=== PATIENT | female | born 1970 | race Caucasian/White ===

== ENCOUNTER 2024-04-12 21:59 | Emergency (ER) | payer OTHER, SELFPAY ==
[2024-04-12 22:01] VITALS: BP 166/87; PULSE 61; RESP 16; TEMP 36.5
--- NOTE | 2024-04-12 23:26 | ED.WOUNDLAC ---
HPI - Wound/Laceration General Chief Complaint: Wound/Laceration Stated Complaint: finger laceration Time Seen by Provider: 04/12/24 22:51 Source: patient Mode of arrival: ambulatory Limitations: no limitations History of Present Illness HPI narrative: This is a 53 year old female that presents to the ER for right 5th finger laceration sustained just prior to arrival. Reports she accidentally cut her finger with a bagel slicer. Reports bleeding and pain to the area. Denies decreased ROM or numbness. Related Data Allergies Allergy/AdvReac Type Severity Reaction Status Date / Time Sulfa (Sulfonamide Allergy Unknown Swelling Verified 04/12/24 22:00 Antibiotics) of Lip/Tongue/Throat Review of Systems Review of Systems: CONSTITUTIONAL: Denies fever SKIN: Reports laceration NEUROLOGIC: Denies numbness All systems reviewed & are unremarkable except as noted in HPI and below PMFSH Past Medical History Medical History (Updated 04/13/24 @ 00:09 by Tennille Senior PA-C) History of seasonal allergies History of depression Social History Social History (Updated 04/12/24 @ 23:29 by Tennille Senior PA-C) Substance use: never Exam Narrative: GENERAL: Well-appearing, well-nourished, and in no acute distress. HEAD: Normocephalic, atraumatic. EYES: EOMI. EXTREMITIES: Normal range of motion. No edema. Right 5th finger with 1cm flap laceration into subcutaneous tissue to the distal phalanx SKIN: Warm, dry, no rash. NEURO: No focal deficits. Alert and oriented x3. PSYCH: Normal mood and affect Course Course Emergency Course: Patient educated on wound care Vital Signs Vital signs: Vital Signs Temperature 97.7 F 04/12/24 22:01 Pulse Rate 61 04/12/24 22:01 Respiratory Rate 16 04/12/24 22:01 Blood Pressure 166/87 H 04/12/24 22:01 Oxygen Delivery Room Air 04/12/24 22:01 Temperature 97.7 F 04/12/24 22:01 Pulse Rate 61 04/12/24 22:01 Respiratory Rate 16 04/12/24 22:01 Blood Pressure 166/87 H 04/12/24 22:01 Oxygen Delivery Room Air 04/12/24 22:01 Procedures Laceration Laceration 1: Date: 04/13/24 Time: 00:10 Site: hand Side (If applicable): right Size (cm): 1 Description: flap Depth: simple, single layer Local Anesthetic: lidocaine 1% Amount of anesthesia used (mL): 2 Pre-repair: wound explored and irrigated ====== Skin Level ====== Skin layer closed with: nylon Size (cm): 4-0 Number of sutures: 2 Technique: simple, interrupted ====== Subcutaneous Layer ====== ====== Muscle Layer ====== ====== Tendon Layer ====== MDM - Wound/Laceration MDM Narrative Medical decision making narrative: Patient presents the emergency department for laceration to the right 5th finger sustained just prior to arrival. She is neurovascularly intact. Wound was irrigated and closed with sutures. Updated on tetanus vaccination. Educated on further wound care. She is to follow up with primary provider. She was given warnings to return the ER Differential Diagnosis Differential diagnosis: Likely laceration, abrasion and avulsion of skin Critical Care Time Critical Care Time Critical Care Time: No Discharge Plan Discharge Clinical Impression: Laceration Patient Disposition: Home, Self-Care Condition: Stable Instructions: Care For Your Stitches (ED), Laceration (ED) Additional Instructions: Return to the emergency department if you experience fever, redness or swelling of your wound, abnormal drainage from your wound, or any other symptoms that are concerning to you. Apply antibiotic ointment daily. Do not soak the wound. Clean with mild soap and water daily Follow-up with your primary care doctor for suture removal in 10-14 days. Patient Language: Ukrainian Follow-up/Referrals: Wade,Roselia Orta MD [Primary Care Provider] - 2 Weeks
[2024-04-13] MEDS: TETANUS,DIPHTHERIA,AC PERTUSSIS ADULT (0.5 ML) BOOSTRIX (00:27)
[2024-04-13 00:36] VITALS: BP 150/85; PULSE 66; RESP 14; O2SAT 100
[2024-04-13 00:37] VITALS: BP 150/85; PULSE 66; RESP 15; O2SAT 100
== END 2024-04-13 00:38 | disposition home or self-care (01) ==
PROVIDERS: Emergency Provider Physician Assistant; PCP Family Medicine
DX: S61.216A Laceration without foreign body of right little finger without damage to nail, initial encounter (principal); Z23 Encounter for immunization; W27.4XXA Contact with kitchen utensil, initial encounter
CPT/HCPCS: 12001; 90471; 90715; 99282